=== PATIENT | female | born 1970 | race African-American/Black ===

== ENCOUNTER 2020-12-05 21:04 | Emergency (ER) | payer OTHER ==
[2020-12-05] MEDS ORDERED: TETRACAINE 0.5% OPHTH SOLN 4ML OU STA (21:54)
[2020-12-05] MEDS ORDERED: FLUORESCEIN 1 MG STRIP OP ONE (21:55)
--- NOTE | 2020-12-05 21:56 | Emergency Department Report ---
ED Eye Problem HPI - General Stated complaint: EYE ISSUES Time Seen by Provider: 12/05/20 21:53 Source: patient, family Mode of arrival: Ambulatory Limitations: No Limitations - History of Present Illness Initial comments: 50-year-old female with no significant past medical history presents to the ER today complaining of right eye irritation. 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 She states patient immediately irrigated her eye thoroughly after getting the liquid in the eye. She states that patient gradually over time started having increasing redness, soreness to the eye, itching, foreign body sensation, and this morning it was crusted and he noticed a little bit some bleeding from the eye. She wears glasses for long distance correction and she denies any blurry vision. Denies any headache, URI symptoms, fever chills or any other symptoms at this time. MD chief complaint: eye pain, eye redness, eye injury -: Sudden, days(s) (2-3) Location: right eye Place: work If Injury: chemical exposure Eye Symptoms: redness, pain, foreign body sensation, itching, other (crusting) Severity: mild, moderate - Related Data Previous Rx's Medication Instructions Recorded Last Taken Type Ibuprofen [Motrin] 800 mg PO Q8HR PRN #30 tablet 12/05/20 Unknown Rx Tobramycin/Dexameth 0.3-0.1% 2 drops OD Q4HR 7 Days #1 bottle 12/05/20 Unknown Rx [Tobradex] Allergies Allergy/AdvReac Type Severity Reaction Status Date / Time No Known Allergies Allergy Unverified 12/05/20 22:09 ED Review of Systems ROS: Stated complaint: EYE ISSUES Other details as noted in HPI Comment: All other systems reviewed and negative Eyes: eye pain, eye discharge, other (Eye redness). denies: vision change ENT: denies: ear pain, throat pain Respiratory: denies: cough, shortness of breath, wheezing Cardiovascular: denies: chest pain, palpitations Gastrointestinal: denies: abdominal pain, nausea, diarrhea Skin: denies: rash, lesions Neurological: denies: headache, weakness, paresthesias Psychiatric: denies: anxiety, depression ED Past Medical Hx - Medications Home Medications: Home Medications Medication Instructions Recorded Confirmed Last Taken Type Ibuprofen [Motrin] 800 mg PO Q8HR PRN #30 tablet 12/05/20 Unknown Rx Tobramycin/Dexameth 0.3-0.1% 2 drops OD Q4HR 7 Days #1 bottle 12/05/20 Unknown Rx [Tobradex] ED Physical Exam - General General appearance: alert, in no apparent distress - Head Head exam: Present: atraumatic, normocephalic, normal inspection - Eye Eye exam: Present: PERRL, EOMI, conjunctival injection (Moderate right respiratory superior aspect of the right eyeball with some mild swelling), other (No apparent corneal abrasions noted on Coughlin lamp exam. No apparent [place] sign.). Absent: scleral icterus, periorbital swelling, periorbital tenderness Pupils: Present: normal accommodation - Expanded Eye Exam Expanded Eyelids: Normal Inspection: Left Pupils: Regular, Round: Bilateral, Reactive: Bilateral Sclera/Conjunctival: Normal Inspection: Left, Injection: Right Anterior chamber: Normal Inspection: Bilateral Posterior chamber: Deferred: Bilateral Visual acuity (R) = 20/: 25 Visual acuity (L) = 20/: 20 With correction: Yes - Neck Neck exam: Present: normal inspection - Respiratory Respiratory exam: Absent: respiratory distress - Cardiovascular Cardiovascular Exam: Present: regular rate - Neurological Exam Neurological exam: Present: alert, oriented X3, CN II-XII intact, normal gait - Psychiatric Psychiatric exam: Present: normal affect, normal mood - Skin Skin exam: Present: intact ED Course Vital Signs 12/05/20 21:56 Temperature 98.5 F Pulse Rate 67 Respiratory 19 Rate Blood Pressure 125/72 O2 Sat by Pulse 96 Oximetry Critical care attestation.: If time is entered above; I have spent that time in minutes in the direct care of this critically ill patient, excluding procedure time. ED Disposition Clinical Impression: Conjunctivitis Disposition: DC-01 TO HOME OR SELFCARE Is pt being admited?: No Does the pt Need Aspirin: No Condition: Stable Instructions: Chemical Conjunctivitis, Adult Additional Instructions: Use antibiotic eyedrops and Motrin as prescribed. Follow-up with the radiation control specialist next or Monday for recheck to make sure that everything is improving. Return to the ER if your symptoms worsens in any way. Prescriptions: Ibuprofen [Motrin] 800 mg PO Q8HR PRN #30 tablet PRN Reason: Pain , Severe (7-10) Tobramycin/Dexameth 0.3-0.1% [Tobradex] 2 drops OD Q4HR 7 Days #1 bottle Referrals: LUCHO CARDONA MD [Staff Physician] - 3-5 Days Time of Disposition: 22:19
[2020-12-05 22:04] VITALS: BP 125/72
== END 2020-12-05 22:40 | disposition home or self-care (01) ==
LOC: ED 21:04
DX: H10.9 Unspecified conjunctivitis (principal); Z79.1 Long term (current) use of non-steroidal anti-inflammatories (NSAID); Z79.899 Other long term (current) drug therapy

== ENCOUNTER 2022-03-04 10:10 | Emergency (ER) | payer OTHER ==
[2022-03-04 14:20] LABS: Basophils # (Auto) 0.1 K/mm3 (0.0-0.1); Basophils % (Auto) 0.6 % (0.0-1.8); Eosinophils # (Auto) 0.4 K/mm3 (0.0-0.4); Eosinophils % (Auto) 3.9 % (0.0-4.3); Hematocrit 39.9 % (30.3-42.9); Hemoglobin 13.1 gm/dl (10.1-14.3); Lymphocytes # (Auto) 3.1 K/mm3 (1.2-5.4); Lymphocytes % (Auto) 31.3 % (13.4-35.0); Mean Corpuscular HGB Conc 33 % (30-34); Mean Corpuscular Volume 87 fl (79-97); Monocytes # (Auto) 0.7 K/mm3 (0.0-0.8); Monocytes % (Auto) 7.3 % (0.0-7.3); Platelet Count 275 K/mm3 (140-440); Red Cell Distribution Width 13.3 % (13.2-15.2)
--- NOTE | 2022-03-04 15:56 | Emergency Department Report ---
ED Female HPI - General Chief complaint: Vaginal Bleeding Stated complaint: HEAVY MENSTRUTAL CYCLE Time Seen by Provider: 03/04/22 14:01 Source: patient, family Mode of arrival: Ambulatory Limitations: Language Barrier - History of Present Illness Initial comments: 51-year-old female presents to the ED complaining vaginal bleeding x2 days. Patient states that she her menstrual cycle and has been bleeding more than normal. Patient states that mild abdominal cramping. Patient patient stated on yesterday that she was using 1 pad per hour but today bleeding has been less. Patient states that she had a transvaginal ultrasound done 4 months ago and the ultrasound was normal. Patient states that within the last couple months that her cycle has been irregular. Patient states that since the vaginal bleeding has started she has been having some mild abdominal cramping rated cramp on the scale of 2 out of 10. Patient's denies any shortness of breath, chest pain, or vaginal discharge. Patient states that she is last seen her primary care doctor 2 weeks ago. Used justice court deputy clerk to interpret information from patient via language line. MD Complaint: vaginal bleeding Severity scale (0 -10): 2 Quality: cramping Consistency: intermittent Improves with: none Worsens with: none Are you Now?: No Associated Symptoms: denies other symptoms - Related Data Previous Rx's Medication Instructions Recorded Last Taken Type Ibuprofen [Motrin] 800 mg PO Q8HR PRN #30 tablet 12/05/20 Unknown Rx Tobramycin/Dexameth 0.3-0.1% 2 drops OD Q4HR 7 Days #1 bottle 12/05/20 Unknown Rx [Tobradex] Naproxen [Naprosyn] 500 mg PO BID 15 Days #30 tablet 03/04/22 Unknown Rx Allergies Allergy/AdvReac Type Severity Reaction Status Date / Time No Known Allergies Allergy Unverified 12/05/20 22:09 ED Review of Systems ROS: Stated complaint: HEAVY MENSTRUTAL CYCLE Other details as noted in HPI Constitutional: denies: chills, fever Eyes: denies: eye pain, eye discharge, vision change ENT: denies: ear pain, throat pain Respiratory: denies: cough, shortness of breath, wheezing Cardiovascular: denies: chest pain, palpitations Endocrine: no symptoms reported Gastrointestinal: denies: abdominal pain, nausea, diarrhea Genitourinary: denies: urgency, dysuria, discharge Musculoskeletal: denies: back pain, joint swelling, arthralgia Skin: denies: rash, lesions Neurological: denies: headache, weakness, paresthesias Psychiatric: denies: anxiety, depression Hematological/Lymphatic: denies: easy bleeding, easy bruising ED Past Medical Hx - Social History Smoking Status: Never Smoker Substance Use Type: None - Medications Home Medications: Home Medications Medication Instructions Recorded Confirmed Last Taken Type Ibuprofen [Motrin] 800 mg PO Q8HR PRN #30 tablet 12/05/20 Unknown Rx Tobramycin/Dexameth 0.3-0.1% 2 drops OD Q4HR 7 Days #1 bottle 12/05/20 Unknown Rx [Tobradex] Naproxen [Naprosyn] 500 mg PO BID 15 Days #30 tablet 03/04/22 Unknown Rx ED Physical Exam - General Limitations: Language Barrier General appearance: alert, in no apparent distress - Head Head exam: Present: atraumatic, normocephalic - Eye Eye exam: Present: normal appearance - ENT ENT exam: Present: mucous membranes moist - Neck Neck exam: Present: normal inspection - Respiratory Respiratory exam: Present: normal lung sounds bilaterally. Absent: respiratory distress - Cardiovascular Cardiovascular Exam: Present: regular rate, normal rhythm. Absent: systolic murmur, diastolic murmur, rubs, gallop - GI/Abdominal GI/Abdominal exam: Present: soft, normal bowel sounds - External exam: Present: normal external exam Speculum exam: Present: vaginal bleeding Bi-manual exam: Present: normal bi-manual exam. Absent: cervical motion tendernes - Extremities Exam Extremities exam: Present: normal inspection - Back Exam Back exam: Present: normal inspection - Neurological Exam Neurological exam: Present: alert, oriented X3 - Psychiatric Psychiatric exam: Present: normal affect, normal mood - Skin Skin exam: Present: warm, dry, intact, normal color. Absent: rash ED Course Vital Signs 03/04/22 03/04/22 10:36 19:14 Temperature 98.3 F Pulse Rate 83 67 Respiratory 18 18 Rate Blood Pressure 119/83 122/89 [Right] O2 Sat by Pulse 98 100 Oximetry ED Medical Decision Making - Lab Data Result diagrams: 03/04/22 14:07 03/04/22 14:07 - Radiology Data [facility] [address] [place] [address] Ultrasound Report Signed Patient: MORRIS LEÓN MR#: [id number] : 1970 Acct:[id number] Age/Sex: 51 / F ADM Date: 03/04/22 Loc: ED Attending Dr: Ordering Physician: REECE DAVIS Date of Service: 03/04/22 Procedure(s): US transvaginal Accession Number(s): [id number] cc: REECE DAVIS ULTRASOUND PELVIS INDICATION: vaginal bleeding. TECHNIQUE: Transvaginal. Duplex Color Doppler used: Yes. COMPARISON: None available FINDINGS: Uterus: Present. Size: 10.0 x 4.9 x 6.5 cm. Endometrial complex: Thickened measuring 1.5 cm. Mass lesions: None. Additional findings: None. Right Ovary: Size: 2.7 x 1.0 x 2.3 cm Blood flow: Normal. Cyst or mass: None. Left Ovary: Obscured by bowel gas. No distinct left adnexal abnormality. Urinary Bladder: Not visualized. Free Fluid: None. Additional Findings: None. IMPRESSION: Nonspecific mild thickening of the endometrium without other significant abnormalities to explain the patient's vaginal bleeding. Please correlate with the patient's menstrual cycle. Signer Name: Loy Delgado MD Signed: 03/04/2022 4:24 PM Workstation Name: [id number] Transcribed By: FABIÁN Dictated By: Loy Delgado MD Electronically Authenticated By: Loy Delgado MD Signed Date/Time: 03/04/221623 DD/ 21 TD/TT: - Medical Decision Making 51-year-old female presents to the ED complaining vaginal bleeding x2 days. Patient states that she her menstrual cycle and has been bleeding more than normal. Patient states that mild abdominal cramping. Patient patient stated on yesterday that she was using 1 pad per hour but today bleeding has been less. Patient states that she had a transvaginal ultrasound done 4 months ago and the ultrasound was normal. Patient states that within the last couple months that her cycle has been irregular. Patient states that since the vaginal bleeding has started she has been having some mild abdominal cramping rated cramp on the scale of 2 out of 10. Patient's denies any shortness of breath, chest pain, or vaginal discharge. Patient states that she is last seen her primary care doctor 2 weeks ago[address] Used [address] deputy clerk to interpret information from patient via language line. Physical examination patient has vaginal bleeding, mild tender ness to the pelvic area on palpation. Normal saline given IV one 1 L.. Patient ultrasound showed endometris patient will follow-up with AUCTION BLOCK CLERK. Rechecked the patient is resting quietly quietly and comfortable and feeling better. I discussed the results of diagnostic study, my clinical impression and the plan for further treatment with the patient. Patient agrees with plan and discharge at this present time. All question addressed. I have given the patient instruction regarding a diagnosis ,expectation ,follow- up and return precaution. I explained to the patient that emergent condition may arise and to return to the ED for new worsen and any new persisting condition. I have explained the importance of following up with the primary care physician or referral physician listed below has instructed. The patient verbalized understanding of discharge instruction. Abnormal Lab Results 03/04/22 03/04/22 03/04/22 14:07 14:07 14:07 WBC 9.8 RBC 4.60 Hgb 13.1 Hct 39.9 MCV 87 MCH 29 MCHC 33 RDW 13.3 Plt Count 275 Lymph % (Auto) 31.3 Treasure % (Auto) 7.3 Eos % (Auto) 3.9 Baso % (Auto) 0.6 Lymph # (Auto) 3.1 Treasure # (Auto) 0.7 Eos # (Auto) 0.4 Baso # (Auto) 0.1 Seg Neutrophils % 56.9 Seg Neutrophils # 5.6 Sodium 139 Potassium 4.0 Chloride 103.7 Carbon Dioxide 24 Anion Gap 15 BUN 10 Creatinine 0.5 L Estimated GFR > 60 BUN/Creatinine Ratio 20 Glucose 86 Calcium 9.0 Total Bilirubin 0.40 AST 13 ALT 11 Alkaline Phosphatase 57 Total Protein 7.0 Albumin 4.3 Albumin/Globulin Ratio 1.6 HCG, Quant < 2 Urine Color Urine Turbidity Urine pH Ur Specific [place] Urine Protein Urine Glucose (UA) Urine Ketones Urine Blood Urine Nitrite Urine Bilirubin Urine Urobilinogen Ur Leukocyte Esterase Urine WBC (Auto) Urine RBC (Auto) Urine HCG, Qual 03/04/22 18:04 WBC RBC Hgb Hct MCV MCH MCHC RDW Plt Count Lymph % (Auto) Treasure % (Auto) Eos % (Auto) Baso % (Auto) Lymph # (Auto) Treasure # (Auto) Eos # (Auto) Baso # (Auto) Seg Neutrophils % Seg Neutrophils # Sodium Potassium Chloride Carbon Dioxide Anion Gap BUN Creatinine Estimated GFR BUN/Creatinine Ratio Glucose Calcium Total Bilirubin AST ALT Alkaline Phosphatase Total Protein Albumin Albumin/Globulin Ratio HCG, Quant Urine Color Colorless Urine Turbidity Clear Urine pH 8.0 H Ur Specific [place] 1.004 Urine Protein <15 mg/dl Urine Glucose (UA) Neg Urine Ketones Tr Urine Blood Sm Urine Nitrite Neg Urine Bilirubin Neg Urine Urobilinogen < 2.0 Ur Leukocyte Esterase Neg Urine WBC (Auto) < 1.0 Urine RBC (Auto) 4.0 Urine HCG, Qual Negative Critical care attestation.: If time is entered above; I have spent that time in minutes in the direct care of this critically ill patient, excluding procedure time. ED Disposition Clinical Impression: Endometriosis, Menorrhagia with regular cycle Disposition: 01 HOME / SELF CARE / HOMELESS Is pt being admited?: No Does the pt Need Aspirin: No Condition: Stable Instructions: Endometriosis, Menorrhagia Additional Instructions: Take medication as prescribed Return to ED for any worsening symptom Prescriptions: Naproxen [Naprosyn] 500 mg PO BID 15 Days #30 tablet Referrals: PRIMARY CAREMD [Primary Care Provider] - 3-5 Days [facility] [Provider Group] - 3-5 Days Forms: Work/School Release Form(ED) Time of Disposition: 19:00
[2022-03-04 16:17] LABS: Alanine Aminotransferase 11 units/L (7-56); Albumin 4.3 g/dL (3.9-5); BUN/Creatinine Ratio 20; Blood Urea Nitrogen 10 mg/dL (7-17); Hemolysis Index 11
--- NOTE | 2022-03-04 16:28 | Ultrasound Report ---
ULTRASOUND PELVIS INDICATION: vaginal bleeding. TECHNIQUE: Transvaginal. Duplex Color Doppler used: Yes. COMPARISON: None available FINDINGS: Uterus: Present. Size: 10.0 x 4.9 x 6.5 cm. Endometrial complex: Thickened measuring 1.5 cm. Mass lesions: None. Additional findings: None. Right Ovary: Size: 2.7 x 1.0 x 2.3 cm Blood flow: Normal. Cyst or mass: None. Left Ovary: Obscured by bowel gas. No distinct left adnexal abnormality. Urinary Bladder: Not visualized. Free Fluid: None. Additional Findings: None. IMPRESSION: Nonspecific mild thickening of the endometrium without other significant abnormalities to explain the patient's vaginal bleeding. Please correlate with the patient's menstrual cycle. Signer Name: Loy Delgado MD Signed: 03/04/2022 4:24 PM Workstation Name: [id number]
[2022-03-04 18:47] LABS: Bilirubin,Urine NEG (Negative); Blood,Urine SM (Negative); Color,Urine Colorless (Yellow); Protein,Urine <15 mg/dL mg/dL (Negative); Urobilinogen,Urine < 2.0 mg/dL (<2.0); WBC,Urine < 1.0 /HPF (0.0-6.0)
[2022-03-04 19:13] LABS: HCG Qualitative,Urine Negative (Negative)
[2022-03-04 19:15] VITALS: BP 122/89
== END 2022-03-04 19:15 | disposition home or self-care (01) ==
LOC: ED 10:10
DX: N80.9 Endometriosis, unspecified (principal); N92.0 Excessive and frequent menstruation with regular cycle
CPT/HCPCS: 36415; 76830; 80053; 81001; 81025; 84702; 85025; 99284